=== PATIENT | male | born 2005 | race Caucasian/White ===

== ENCOUNTER 2023-02-22 18:11 | Emergency (ER) | payer BC, SELFPAY ==
[2023-02-22 18:18] VITALS: BP 128/86; PULSE 59; RESP 16; TEMP 36.8; O2SAT 98; BMI 20.9
--- NOTE | 2023-02-22 18:43 | CRLHL7_ITS ---
For Patients: As a result of the Century Cures Act, medical imaging exams and procedure reports are released immediately into your electronic medical record. You may view this report before your referring provider. If you have questions, please contact your health care provider. INDICATION: Trauma. TECHNIQUE: CT head without contrast. COMPARISON: None. FINDINGS: CSF spaces: Within normal limits for age. Brain parenchyma and extra-axial spaces: The castillo-white differentiation is normal. No sign of mass, hemorrhage, or midline shift. No extra-axial fluid collection. Skull base and calvarium: Frontal scalp laceration/hematoma. The visualized paranasal sinuses and mastoid air cells demonstrate no acute or significant findings. The visualized orbits are grossly unremarkable. No skull fractures. IMPRESSION: Frontal scalp laceration/hematoma. No acute intracranial abnormality. Please note that all CT scans at this facility use dose modulation, iterative reconstruction, and/or weight-based dosing when appropriate to reduce radiation dose to as low as reasonably achievable. Dictated by aMthew Garces MD @ 02/22/2023 8:19:54 PM (Electronically Signed)
--- NOTE | 2023-02-22 18:43 | CRLHL7_ITS ---
For Patients: As a result of the Cures Act, medical imaging exams and procedure reports are released immediately into your electronic medical record. You may view this report before your referring provider. If you have questions, please contact your health care provider. INDICATION: Trauma. TECHNIQUE: CT cervical spine without contrast. COMPARISON: None. FINDINGS: Vertebrae: Alignment is normal. There are no fractures or suspicious bony lesions. Discs and facet joints: There are diffuse degenerative changes in the disc spaces and facet joints. Extraspinal findings: Paraspinous soft tissues are unremarkable. IMPRESSION: 1. No sign of acute injury. 2. Multilevel degenerative spondylosis. Please note that all CT scans at this facility use dose modulation, iterative reconstruction, and/or weight-based dosing when appropriate to reduce radiation dose to as low as reasonably achievable. Dictated by Mathew Garces MD @ 02/22/2023 8:24:47 PM (Electronically Signed)
--- NOTE | 2023-02-22 19:00 | ED.GENADULT ---
[facility] - General Adult General Date Seen: 02/22/23 Chief complaint: Head Injury/Pain Stated complaint: head injury Time Seen by Provider: 02/22/23 18:12 Source: patient Mode of arrival: ambulatory Limitations: no limitations History of Present Illness HPI narrative: Patient is a 18-year-old male presenting emergency department for laceration to the top of his head. He states he was at track practice when a 45 lb barbell fell about 2 ft landing on his head. She he had a large amount of bleeding at that time but has since at the bleeding to stop. Has some mild stinging pain around the laceration mother that denies headache, weakness, numbness, lightheadedness, dizziness, neck pain. No other injuries noted. His last tetanus was 5 years ago. No other concerns at this time. Related Data Home Medications Medication Instructions Recorded Confirmed No Known Home Medications 02/22/23 02/22/23 Allergies Allergy/AdvReac Type Severity Reaction Status Date / Time No Known Drug Allergies Allergy Verified 02/22/23 18:18 Review of Systems Narrative: Negative unless otherwise stated in HPI PFSH PFSH Social History Smoking Status: Never smoker Do you use any of these nicotine containing products: None Second hand tobacco smoke exposure: No How often do you have a drink containing alcohol: never How often do you have six or more drinks on one occasion: Never AUDIT-C Alcohol total score: 0 Non-prescribed substance use: denies use service: No Exam Narrative: Exam Narrative: Const: Well-nourished, Well-developed, in now distress Eyes: PERRL, no conjunctival injection, and symmetrical lids HENT: Atraumatic external nose and ears. Moist mucous membranes. 2.5 cm laceration on top of patient's head Neck: Symmetric, trachea midline, No thyromegaly. No midline tenderness of cervical spine MSK:Extremities w/o deformity, Normal Active ROM Skin: Warm, Dry. No rashes or lesions. Neuro: Normal Muscle tone, No focal neurological deficits. Psych: Awake, Alert, & Oriented x3. Appropriate mood and affect. Const: Vital Signs, click to edit/add: Vital Signs - 24 hr 02/22/23 18:18 Temperature 98.3 F Pulse Rate [Pulse Oximeter] 59 L Respiratory Rate 16 Blood Pressure [Ri ght Upper Arm] 128/86 Pulse Oximetry 98 Oxygen Delivery Me thod Room Air Course Vital Signs Vital signs: Initial Vital Signs Temperature 98.3 F 02/22/23 18:18 Temperature Source Temporal Artery Scan 02/22/23 18:18 Pulse Rate 59 L 02/22/23 18:18 Respiratory Rate 16 02/22/23 18:18 Blood Pressure 128/86 02/22/23 18:18 Blood Pressure Mean 100 02/22/23 18:18 Blood Pressure Position Sitting 02/22/23 18:18 Pulse Oximetry 98 02/22/23 18:18 Oxygen Delivery Method Room Air 02/22/23 18:18 Vital Signs Temperature 98.3 F 02/22/23 18:18 Pulse Rate 59 L 02/22/23 18:18 Respiratory Rate 16 02/22/23 18:18 Blood Pressure 128/86 02/22/23 18:18 Pulse Oximetry 98 02/22/23 18:18 Oxygen Delivery Method Room Air 02/22/23 18:18 Temperature 98.3 F 02/22/23 18:18 Pulse Rate 59 L 02/22/23 18:18 Respiratory Rate 16 02/22/23 18:18 Blood Pressure 128/86 02/22/23 18:18 Pulse Oximetry 98 02/22/23 18:18 Oxygen Delivery Method Room Air 02/22/23 18:18 Medical Decision Making MDM Narrative Medical decision making narrative: Patient is a 18-year-old male presents emergency department after a 45 lb barbell fell about 2 ft onto his head. He has no lightheadedness or dizziness is not labeled any other symptoms other than having pain around the laceration site on the top of his head. Denies any neck pain at this time. No lightheadedness or dizziness. He has no focal neurological deficits. Due to the nature of the injury there is a concerning mechanism action so CT head and cervical spine ordered. Results returned showing no concerning abnormalities. Laceration was repaired using 9 yvette. He tolerated the procedure well. He is otherwise doing well and please see the discharge home. Imaging Data CT scan - head: Radiologist's impression: INDICATION: Trauma. TECHNIQUE: CT head without contrast. COMPARISON: None. FINDINGS: CSF spaces: Within normal limits for age. Brain parenchyma and extra-axial spaces: The castillo-white differentiation is normal. No sign of mass, hemorrhage, or midline shift. No extra-axial fluid collection. Skull base and calvarium: Frontal scalp laceration/hematoma. The visualized paranasal sinuses and mastoid air cells demonstrate no acute or significant findings. The visualized orbits are grossly unremarkable. No skull fractures. IMPRESSION: Frontal scalp laceration/hematoma. No acute intracranial abnormality. Please note that all CT scans at this facility use dose modulation, iterative reconstruction, and/or weight-based dosing when appropriate to reduce radiation dose to as low as reasonably achievable. Dictated by Mathew Garces MD @ 02/22/2023 8:19:[address] cervical spine: Radiologist's impression: INDICATION: Trauma. TECHNIQUE: CT cervical spine without contrast. COMPARISON: None. FINDINGS: Vertebrae: Alignment is normal. There are no fractures or suspicious bony lesions. Discs and facet joints: There are diffuse degenerative changes in the disc spaces and facet joints. Extraspinal findings: Paraspinous soft tissues are unremarkable. IMPRESSION: 1. No sign of acute injury. 2. Multilevel degenerative spondylosis. Please note that all CT scans at this facility use dose modulation, iterative reconstruction, and/or weight-based dosing when appropriate to reduce radiation dose to as low as reasonably achievable. Dictated by Mathew Garces MD @ 02/22/2023 8:24:47 PM Discharge Plan Discharge Clinical Impression: Closed head injury Qualifiers: Encounter type: initial encounter Qualified Code(s): S09.90XA - Unspecified injury of head, initial encounter Laceration of scalp Qualifiers: Encounter type: initial encounter Qualified Code(s): S01.01XA - Laceration without foreign body of scalp, initial encounter Patient Disposition: Home, Self-Care Condition: Stable Instructions: Staple Care (ED) Additional Instructions: Follow-up with your primary care provider or return to the emergency department in the next 7 days to have the 9 yvette removed. Topical antibiotics are not necessary at this time. Patient can shower but do not submerge the laceration until yvette are removed. You also return to the emergency department for new or worsening symptoms Prescriptions: No Action No Known Home Medications Follow Up/Referrals: Provider,Not a Local [Primary Care Provider] - Stand Alone Forms: [facility] Info Instructions Procedures Laceration Scalp: Name of person performing procedure: Adi Birch Site: scalp Size (cm): 2 Description: linear and stellate Depth: simple, single layer Local Anesthetic: lidocaine 1% Amount of anesthesia used (mL): 6 Pre-repair: wound explored, irrigated extensively and deep structures intact Skin layer closed with: other (9 yvette)
== END 2023-02-22 20:33 | disposition home or self-care (01) ==
PROVIDERS: Emergency Provider Student in an Organized Health Care Education/Training Program
DX: S01.01XA Laceration without foreign body of scalp, initial encounter (principal); W22.8XXA Striking against or struck by other objects, initial encounter
CPT/HCPCS: 12001; 70450; 72125; 99283

== ENCOUNTER 2025-02-06 14:34 | Outpatient (CLI) | payer OTHER, SELFPAY ==
[2025-02-06 15:08] LABS: Hemoglobin* 13.7 gm/dL (13.5-17.5)
== END 2025-02-06 14:35 | disposition home or self-care (01) ==
LOC: LAB 14:42
PROVIDERS: Visit Provider Family Medicine
DX: R53.83 Other fatigue (principal)
CPT/HCPCS: 36415; 82728; 85018